=== PATIENT | female | born 1975 | race Caucasian/White ===

== ENCOUNTER → 2016-05-03 | Day surgery (SDC) | payer OTHER ==
[~2016-05-03] VITALS: Ht 175.3 cm; Wt 116.2 kg
[~2016-05-03] MED LIST: COLACE100 MG PO; IBUPROFEN800 MG PO; NICOTINE PATCH1 EAC1 TOP; PERCOCET 5-3251 EACH PO; REMICADE100 MG IV
== END ==
LOC: GPOC 04-30 09:00
PROC: 0DBL8ZX Excision of Transverse Colon, Via Natural or Artificial Opening Endoscopic, Diagnostic (ICD-10-PCS; principal; 2016-05-03)
DX: D12.3 Benign neoplasm of transverse colon (principal); Z80.0 Family history of malignant neoplasm of digestive organs; F17.210 Nicotine dependence, cigarettes, uncomplicated
CPT/HCPCS: J2001; J7030

== ENCOUNTER → 2016-06-12 | Outpatient (CLI) | payer OTHER | END | disposition disaster alternative care site (69) | LOC: LOC 17:42 | DX: K50.90 Crohn's disease, unspecified, without complications (principal) ==

== ENCOUNTER → 2016-08-07 | Outpatient (CLI) | payer OTHER ==
[2016-08-07 14:18] LABS: BASOPHIL % 0.2 %; EOSINOPHIL # 0.1 K/uL (0.0-0.5); EOSINOPHIL % 0.8 %; HEMATOCRIT 41.5 % (33.0-46.0); IMMATURE GRANULOCYTE % 0.2 %; LYMPHOCYTE # 3.8 K/uL (0.8-4.0); MCH 32.5 pg (27.0-34.0); MCHC 33.7 gm/dL (32.0-36.5); MCV 96.3 fl (83.0-98.0); MONOCYTE # 0.8 K/uL (0.0-1.0); MONOCYTE % 7.7 %; MPV 11.1 fl (9.4-12.4); NEUTROPHIL # (ANC) 5.5 K/uL (1.8-7.8); NEUTROPHIL % 54.1 %; NRBC % 0 /100WBC (0-0.00); PLATELET COUNT 221 K/uL (150-450); RBC 4.31 M/uL (3.50-5.50); RDW-CV 12.7 % (11.9-14.6); WBC 10.1 K/uL (4.0-11.0)
[2016-08-07 14:28] LABS: BLOOD UREA NITROGEN 15 mg/dL (6-24); CALCIUM 8.6 mg/dL (8.5-10.5); CHLORIDE 105 mMol/L (96-110); CO2 25 mMol/L (22-32); CREATININE 0.9 mg/dL (0.5-1.1); ESTIMATED GFR (MDRD EQUATION) > 60; SODIUM 137 mMol/L (135-145)
== END | disposition disaster alternative care site (69) ==
LOC: LOC 14:04
PROVIDERS: Internal Medicine Gastroenterology
DX: K50.90 Crohn's disease, unspecified, without complications (principal)

== ENCOUNTER → 2016-10-03 | Outpatient (CLI) | payer OTHER ==
[2016-10-03 12:33] LABS: HEMOGLOBIN 12.9 g/dL (11.0-15.0); MCH 32.5 pg (27.0-34.0); MCHC 33.9 gm/dL (32.0-36.5); MCV 95.7 fl (83.0-98.0); PLATELET COUNT 216 K/uL (150-450); RBC 3.97 M/uL (3.50-5.50); RDW-CV 12.6 % (11.9-14.6); WBC 8.2 K/uL (4.0-11.0)
[2016-10-03 12:43] LABS: CALCIUM 8.1 mg/dL (8.5-10.5); CREATININE 0.9 mg/dL (0.5-1.1)
[2016-10-03 13:07] LABS: ABSOLUTE NEUTROPHIL CT (ANC) 4.4 K/uL (1.8-7.8); BANDED NEUTROPHIL # 0.2 K/uL (0.0-0.1); BANDED NEUTROPHILS % 3 %; LYMPHOCYTE % 37 %; MONOCYTE # 0.5 K/uL (0.0-1.0); SEGMENTED NEUTROPHIL # 4.2 K/uL (1.8-7.8); SEGMENTED NEUTROPHIL % 51 %
== END | disposition disaster alternative care site (69) ==
LOC: LOC 17:44
PROVIDERS: Internal Medicine Gastroenterology
DX: K50.90 Crohn's disease, unspecified, without complications (principal)